=== PATIENT | female | born 1980 | race Hispanic/Latino ===

== ENCOUNTER 2019-12-03 12:08 | Emergency (ER) | payer OTHER, SELFPAY ==
[2019-12-03 12:25] VITALS: BP 145/70; PULSE 110; RESP 13; TEMP 36.8; O2SAT 98
--- NOTE | 2019-12-03 12:29 | ED_ITS ---
HPI - General Adult General Chief complaint: Abdominal Pain Stated complaint: Back pain, colon issue Time Seen by Provider: 12/03/19 12:15 Source: patient Mode of arrival: Ambulatory Limitations: no limitations History of Present Illness HPI narrative: 39-year-old female sent over from her primary doctor's office for evaluation of rectal prolapse. Patient states that she has had chronic pelvic in lower abdomen and back pain. Has had multiple CT scans and colonoscopies for this in the past. There has never been a confirmed diagnosis. She states that for the past 8 months she has had occasional episodes where she has had rectal prolapse. They of all reduced on their own. She currently does not have a rectal prolapse. She went to see her primary doctor today for this. He sent her to the emergency department to be evaluated by General surgery. She states that the last time that she has had a prolapse was several days ago. That is when she took the picture that she has today. She also states she has had problems with having bowel movements. No vomiting. No fevers. No urinary symptoms. She states she has never had to reduce that on its own. Has always spontaneously reduced. She does have lower abdominal pain but this is chronic. Related Data Home Medications Medication Instructions Recorded Confirmed prednisone 20 mg PO DAILY 12/03/19 12/03/19 Allergies Allergy/AdvReac Type Severity Reaction Status Date / Time INGREDIENT: NKDA - NO KNOWN Allergy Unknown Uncoded 12/21/17 13:11 DRUG ALLERGIES Review of Systems Constitutional Constitutional: Denies fever(s) and Denies headache(s) ENT Ears, Nose, Mouth, and Throat: Denies headache(s) Cardiovascular Cardiovascular: Denies chest pain and Denies dyspnea Respiratory Respiratory: Denies dyspnea Gastrointestinal Gastrointestinal: Reports abdominal pain, Denies nausea and Denies vomiting Comments: Constipation and rectal prolapse Musculoskeletal Musculoskeletal: Reports back pain Integumentary/Breasts Skin/Breast: Denies lesions and Denies rash Neurologic Neurologic: Denies behavioral changes and Denies headache(s) Psychiatric Psychiatric: Denies behavioral changes Hematologic/Lymphatic Hematologic/Lymphatic: Denies easy bleeding and Denies easy bruising Patient History Medical History Chronic abdominal pain (Acute) Social History Smoking Status: Current every day smoker Smoking Status: Current every day smoker tobacco type: cigarettes alcohol intake frequency: a few times a month Substance Use Type: does not use Exam Initial Vital Signs Initial Vital Signs: Vital Signs Temperature 98.3 F 12/03/19 12:25 Pulse Rate 110 H 12/03/19 12:25 Respiratory Rate 13 12/03/19 12:25 Blood Pressure 145/70 H 12/03/19 12:25 Pulse Oximetry 98 12/03/19 12:25 Const General: cooperative, well developed and well groomed Limitations: mental status not altered Resp Effort & Inspection: normal respiratory effort Auscultation: clear to auscultation bilaterally Cardio Rate: tachycardic Rhythm: regular rhythm GI Inspection: non-distended Palpation: soft and tender (Left-sided abdomen) Skin Lesions: no lesions Rashes: no rashes Neuro General: alert, awake and oriented x3 Extrem General: normal to inspection and capillary refill normal Psych Appearance: grossly normal and well kempt Course Vital Signs Vital signs: Vital Signs - 8 hr 12/03/19 12:25 Temperature 98.3 F Pulse Rate 110 H Respiratory Rate 13 Blood Pressure 145/70 H Pulse Oximetry 98 Medical Decision Making MDM Narrative Medical decision making narrative: I did not do an exam of her rectum. She states that she was not prolapsed currently. She showed me the picture that she took a couple days ago. This is consistent with a rectal prolapse. I did discuss the case with Dr. Forbes with General surgery who recommended given the patient's age that she be evaluated by a colorectal provider. I then discussed the case with General surgery over at [facility] who has a colorectal provider. I did discuss the case with the general surgeon specialist employee labor relations who stated that given the fact that this symptoms have been going on for the past 8 months and that they are self reducing and that she is not reduced now that no further workup needed in the emergency department and that she could follow up with Dr. Padgett as an outpatient. Patient was provided the information for Dr. Padgett. She was given return precautions and follow-up instructions. I do not feel given her exam today that we need to obtain a CT scan of her abdomen. Patient expressed understanding. Discharge Plan Departure Patient Disposition: Home Clinical Impression: Rectal prolapse Instructions: DI for Rectal Prolapse Activity Restrictions/Additional Instructions: After discussions with the general surgeons here at this hospital they do recommend that you were referred to see Colorectal surgery. I recommend that you contact Dr. Rick Padgett who is a colorectal surgeon at [facility]. His office phone number is [phone]. I recommend that you start on a bowel regiment so that you are having 1 soft bowel movement today. This bowel regimen can be anything from increasing her fluid intake to increasing fiber to stool softeners to laxatives. It is most likely that the prolapse will happen again when you have another bowel movement. Just provide gentle pressure to the area. If it ever does not reduce on its own or you start to have new symptoms please return to the emergency department for further evaluation. Prescriptions: No Action prednisone 20 mg Tablet 20 mg PO DAILY RF: 0 Referrals: Shayne Sam MD [Primary Care Provider] -
[2019-12-03 13:02] VITALS: BP 145/70; PULSE 110; RESP 20; TEMP 36.8; O2SAT 98; BMI 21.9
--- NOTE | 2019-12-03 13:05 | PC.NURSE ---
ER provider speaking with patient regarding plan of care. Patient to follow up on an outpatient basis. V/U. Patient tearful.
== END 2019-12-03 13:00 | disposition home or self-care (01) ==
PROVIDERS: Emergency Provider Emergency Medicine; Family Provider Internal Medicine; PCP Internal Medicine
DX: K62.3 Rectal prolapse (principal)
CPT/HCPCS: 99281

== ENCOUNTER 2022-03-27 09:31 | Emergency (ER) | payer OTHER, SELFPAY ==
[2022-03-27 10:00] VITALS: BP 125/78; PULSE 96; RESP 18; O2SAT 100; BMI 23.0
--- NOTE | 2022-03-27 11:58 | ED_ITS ---
HPI - Headache <CHERI Leary - Last Filed: 03/27/22 14:55> General Chief Complaint: Headache Stated Complaint: head pain in back of head; Time Seen by Provider: 03/27/22 11:54 Mode of arrival: Ambulatory History of Present Illness HPI Narrative: 41-year-old female, daily smoker, presents to the emergency department with occipital headache pain x1 week. Patient had sinus issues for many years finally saw ENT 2 weeks ago. Patient received CT scan sinuses, per patient, it was then placed on antibiotics for 2 weeks and steroids x1 week. Patient reports that the headache pain started immediately after the steroids ended and has progressively gotten worse. Patient now complains of pain of the center occiput with palpation. Palpation of left frontal sinuses causes pain to radiate back to the occiput. Patient is scheduled to see her ENT next Tuesday for repeat CT but she is concerned she may ?stroke out? by that time. Patient and mother report a familial history of stroke. Patient is tearful during evaluation. Related Data Allergies Allergy/AdvReac Type Severity Reaction Status Date / Time No Known Drug Allergies Allergy Verified 03/27/22 10:00 Review of Systems <CHERI Leary - Last Filed: 03/27/22 14:55> Review of Systems Narrative: Narrative: GENERAL: Denies chills, fatigue, fever, sweats. See HPI HEENT: Denies ear pain, sore throat, difficulty swallowing, dizziness. RESPIRATORY: Denies dyspnea, cough, wheezing, sputum. CARDIOVASCULAR: Denies chest pain, palpitations, edema. GASTROINTESTINAL: Denies nausea, vomiting, abdominal pain, diarrhea. : Denies dysuria, frequency, incontinence, hematuria, urinary retention, flank pain. MSK: Denies weakness, joint pain, or bony pain. SKIN: Denies pruritis. NEUROLOGIC: Denies weakness, dizziness, numbness, confusion. PSYCHIATRIC: No concerning psychosocial issues. Patient History <CHERI Leary - Last Filed: 03/27/22 14:55> Medical History (Updated 03/27/22 @ 14:54 by CHERI Leary) Chronic abdominal pain Social History Smoking Status: Current every day smoker Smoking Status: Current every day smoker tobacco type: cigarettes alcohol intake frequency: a few times a month Substance Use Type: marijuana Exam <CHERI Leary - Last Filed: 03/27/22 14:55> Narrative Exam Narrative: Exam Narrative: GENERAL: This is a well-nourished, well-developed patient, in no acute distress HEAD: Atraumatic. Normocephalic. No rashes, lesions or signs of trauma noted to scalp. EYES: Pupils equal round and reactive. Extraocular motions intact. No scleral icterus, injection or drainage. ENT: Nose without bleeding, purulent drainage. Throat without erythema, tonsillar hypertrophy. Positive postnasal drainage. Airway patent. Left frontal sinuses tender. NECK: Trachea midline. No JVD or lymphadenopathy. Nontender. CARDIOVASCULAR: Regular rate and rhythm without murmurs, peripheral pulses intact, cap refill <2 sec. RESPIRATORY: Breath sounds equal and clear bilaterally. No wheezes, rales, or rhonchi. No cough. No increased respiratory effort. No accessory muscle use. GASTROINTESTINAL: Abdomen soft, non-tender, nondistended without guarding or rebound. No suprapubic pain. MSK: Moves all extremities. Normal range of motion, no clubbing or edema. Neurovascularly intact. NEURO: A&O x 3. Neurological examination unremarkable. SKIN: Warm, dry, no rashes or lesions noted. Initial Vital Signs Initial Vital Signs: Vital Signs Pulse Rate 96 H 03/27/22 10:00 Respiratory Rate 18 03/27/22 10:00 Blood Pressure 125/78 03/27/22 10:00 Pulse Oximetry 100 03/27/22 10:00 Oxygen Delivery Method 03/27/22 10:00 Reviewed Neuro Cranial Nerves: CN's II-XI intact bilaterally <Fletcher Tai MD - Last Filed: 03/28/22 07:51> Initial Vital Signs Initial Vital Signs: Vital Signs Pulse Rate 96 H 03/27/22 10:00 Respiratory Rate 18 03/27/22 10:00 Blood Pressure 125/78 03/27/22 10:00 Pulse Oximetry 100 03/27/22 10:00 Oxygen Delivery Method 03/27/22 10:00 Course <CHERI Leary - Last Filed: 03/27/22 14:55> Orders Ordered: Discontinued Medications Sodium Chloride (Normal Saline 0.9%) 1,000 mls @ 1,000 mls/hr IV BOLUS ONE Stop: 03/27/22 13:24 Last Infusion: 03/27/22 15:10 Dose: 0 mls/hr Documented By: Admin: 03/27/22 12:53 Dose: 1,000 mls/hr Documented By: CLAUDETTE Ketorolac Tromethamine (Ketorolac 30 Mg/Ml Vial) 30 mg IV NOW ONE Stop: 03/27/22 12:26 Last Admin: 03/27/22 12:54 Dose: 30 mg Documented By: CLAUDETTE Vital Signs Vital signs: Vital Signs - 8 hr 03/27/22 10:00 Pulse Rate 96 H Respiratory Rate 18 Blood Pressure 125/78 Pulse Oximetry 100 Oxygen Delivery Method Room Air <Fletcher Tai MD - Last Filed: 03/28/22 07:51> Orders Ordered: Discontinued Medications Sodium Chloride (Normal Saline 0.9%) 1,000 mls @ 1,000 mls/hr IV BOLUS ONE Stop: 03/27/22 13:24 Last Infusion: 03/27/22 15:10 Dose: 0 mls/hr Documented By: Admin: 03/27/22 12:53 Dose: 1,000 mls/hr Documented By: CLAUDETTE Ketorolac Tromethamine (Ketorolac 30 Mg/Ml Vial) 30 mg IV NOW ONE Stop: 03/27/22 12:26 Last Admin: 03/27/22 12:54 Dose: 30 mg Documented By: CLAUDETTE Vital Signs Vital signs: Vital Signs - 8 hr 03/27/22 10:00 Pulse Rate 96 H Respiratory Rate 18 Blood Pressure 125/78 Pulse Oximetry 100 Oxygen Delivery Method Room Air MDM - Headache <CHERI Leary - Last Filed: 03/27/22 14:55> Differential Diagnosis Differential diagnosis: Likely migraine and sinusitis Lab Data Result diagrams: 03/27/22 11:30 03/27/22 11:30 Labs: Lab Results 03/27/22 03/27/22 03/27/22 Range/Units 11:30 11:30 11:30 WBC 7.6 (4.5-11.0) X10^3/uL RBC 4.04 (4.0-5.2) X10^6/uL Hgb 13.3 (12.0-16.0) g/dL Hct 39.1 (36-46) % MCV 96.6 (80-100) fL MCH 33.0 (26-34) PG MCHC 34.2 (30-36) % RDW 13.8 (11.6-14.8) % Plt Count 185 (150-400) X10^3/uL Neut % (Auto) 66.3 (50-75) % Lymph % (Auto) 24.7 L (25-40) % Power % (Auto) 6.2 (3-14) % Eos % (Auto) 2.4 (2-4) % Baso % (Auto) 0.4 (0-2) % Neut # (Auto) 5100 (9590-5623) /uL Lymph # (Auto) 1900 (0685-5673) /uL Power # (Auto) 500 (0-900) /uL Eos # (Auto) 200 (0-450) /uL Baso # (Auto) 0 (0-100) /uL Sodium 138 (137-145) mmol/L Potassium 3.8 (3.4-5.1) mmol/L Chloride 104 (98-107) mmol/L Carbon Dioxide 29 (22-32) mmol/L BUN 7 (7-17) mg/dL Creatinine 0.68 (0.52-1.04) mg/dL Estimated GFR > 60 (>60) mL/min BUN/Creatinine Ratio 10.3 (6-22) Glucose 98 (70-100) mg/dL Calcium 8.9 (8.4-10.2) mg/dL Total Bilirubin 0.7 (0.2-1.3) mg/dL AST 44 H (14-36) IU/L ALT 21 (<35) IU/L Alkaline Phosphatase 75 (38-126) U/L Total Protein 7.1 (6.3-8.2) g/dL Albumin 4.2 (3.5-5.0) g/dL Globulin 2.9 (1.7-4.1) g/dL Albumin/Globulin Ratio 1.4 (1.0-2.8) Serum , Qual Negative (Negative) Imaging Data CTA - brain/neck: Radiologist's Impression: [address] [address] [address] Scan Report Signed Patient: Adina Loredo MR#: [id number] : 1980 Acct:[id number] Age/Sex: 41 / F Date of Service: 03/27/22 Loc: ED Accession Number: [id number] ?? Procedure: CT angio head and neck Ordering Provider: Jensen Vázquez PROCEDURE:? CT ANGIO HEAD AND NECK ? INDICATIONS:? headache pain ? TECHNIQUE:? Pre-contrast 4.5 mm thick sections acquired from the foramen magnum to the vertex.? After the administration of intravenous contrast, 1 mm thick sections acquired from the aortic arch through the [place] of Javier.? Post-contrast 4.5 mm thick sections then re- acquired from the foramen magnum to the vertex.? For radiation dose reduction, the following was used:? automated exposure control, adjustment of mA and/or kV according to patient size.? ? ? COMPARISON:? Outside Film, CT, CT SINUS WITHOUT CONTRAST, 03/04/2022, 17:19.? [facility], CT, CT SINUS WITHOUT CONTRAST, 08/15/2020, 10:57. ? FINDINGS: ? Noncontrast CT Brain: ? Cerebrum, cerebellum and brainstem:? There is appropriate cerebral and cerebellar volume. ?No evidence of intracranial hemorrhage, mass effect or extra-axial fluid collections.? No white matter disease. Victoria-white distinction is well preserved throughout the exam. ? Ventricles:? Appropriate size and position.? No evidence of hydrocephalus. ? Skull base:? The bony sella, pituitary gland and infundibulum are unremarkable.? Posterior fossa and cerebellum are unremarkable. Visualized portions of the external auditory canals and tympanic cavity are within normal limits. ? Calvarium and Scalp:? No scalp soft tissue swelling.? The underlying calvarium is intact without skull fracture or lytic lesion. ? Paranasal Sinuses:? Left maxillary sinus mucosal thickening with internal mucosal debris results in near complete opacification Mastoids:? Unremarkable as visualized.? No mastoid effusion. ? Cerebral CT Angiogram: ? Internal carotid arteries:? No acute findings.? Intracranial ICA are patent with no significant stenosis.? No occlusion.? No aneurysm. ? Anterior cerebral arteries:? Unremarkable.? No significant stenosis.? No o cclusion.? No aneurysm. ? Middle cerebral arteries:? Unremarkable.? No significant stenosis.? No occ lusion.? No aneurysm. ? Posterior cerebral arteries:? 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 The P2 segment is supplied by a widely patent posterior communicating artery. Remainder of the distal vasculature unremarkable. ? Basilar artery:? Unremarkable.? No significant stenosis.? No occlusion.? No aneurysm. ? Vertebral arteries:? Unremarkable.? No significant stenosis.? No dissection or occlusion. ? Dural venous sinuses:? Unremarkable given phase of enhancement. Other: Arterial phase brain parenchyma unremarkable. ? Neck CT Angiogram: ? Internal carotid arteries:? Unremarkable.? No significant stenosis.? No dissection or occlusion. ? Common carotid arteries:? Unremarkable.? No significant stenosis.? No dissection or occlusion. ? External carotid arteries:? Unremarkable.? No occlusion. ? Vertebral arteries:? Unremarkable.? No significant stenosis.? No dissection or occlusion. ? Aortic arch and mediastinum: Unremarkable. Other:? Surgical clips noted both thoracic inlets.? Both lung apices are clear. ? IMPRESSION: ? 1. Unremarkable CT angiogram of the head and neck without evidence of large vessel occlusion, aneurysm or vascular malformation. ? 2. Left maxillary mucosal sinus disease with obstruction of the ostiomeatal unit and slight expansion of the sinus. ? Note: Any reported proximal ICA stenosis was calculated using NASCET guidelines.? Approved by: Tony Aponte M.D. on 03/27/2022 at 13:35? [facility] Narrative Medical decision making narrative: 41-year-old female that presents to emergency department with headache and sinus pain. Labs were all within normal limits. CT angiogram reveals Left maxillary mucosal sinus disease with obstruction of the ostiomeatal unit and slight expansion of the sinus.. Patient treated with 1 L of normal saline, and ketorolac. Patient has a follow-up appointment with her ENT Tuesday, so will not prescribe any antibiotics. Recommend patient use Tylenol for her headache pain. Discussed return precautions and plan of care with patient, who was agreeable with course of action. <Fletcher Tai MD - Last Filed: 03/28/22 07:51> Lab Data Labs: Lab Results 03/27/22 03/27/22 03/27/22 Range/Units 11:30 11:30 11:30 WBC 7.6 (4.5-11.0) X10^3/uL RBC 4.04 (4.0-5.2) X10^6/uL Hgb 13.3 (12.0-16.0) g/dL Hct 39.1 (36-46) % MCV 96.6 (80-100) fL MCH 33.0 (26-34) PG MCHC 34.2 (30-36) % RDW 13.8 (11.6-14.8) % Plt Count 185 (150-400) X10^3/uL Neut % (Auto) 66.3 (50-75) % Lymph % (Auto) 24.7 L (25-40) % Power % (Auto) 6.2 (3-14) % Eos % (Auto) 2.4 (2-4) % Baso % (Auto) 0.4 (0-2) % Neut # (Auto) 5100 (6524-4509) /uL Lymph # (Auto) 1900 (4146-1213) /uL Power # (Auto) 500 (0-900) /uL Eos # (Auto) 200 (0-450) /uL Baso # (Auto) 0 (0-100) /uL Sodium 138 (137-145) mmol/L Potassium 3.8 (3.4-5.1) mmol/L Chloride 104 (98-107) mmol/L Carbon Dioxide 29 (22-32) mmol/L BUN 7 (7-17) mg/dL Creatinine 0.68 (0.52-1.04) mg/dL Estimated GFR > 60 (>60) mL/min BUN/Creatinine Ratio 10.3 (6-22) Glucose 98 (70-100) mg/dL Calcium 8.9 (8.4-10.2) mg/dL Total Bilirubin 0.7 (0.2-1.3) mg/dL AST 44 H (14-36) IU/L ALT 21 (<35) IU/L Alkaline Phosphatase 75 (38-126) U/L Total Protein 7.1 (6.3-8.2) g/dL Albumin 4.2 (3.5-5.0) g/dL Globulin 2.9 (1.7-4.1) g/dL Albumin/Globulin Ratio 1.4 (1.0-2.8) Serum , Qual Negative (Negative) Discharge Plan Departure Patient Disposition: Home Clinical Impression: Tension headache, Sinusitis Instructions: DI for Sinus Headache Activity Restrictions/Additional Instructions: *You have been diagnosed with a sinus headache. Your CT angiogram showed no concerning symptoms other than left-sided sinus issues. Please follow-up with your ENT doctor on Tuesday, as previously prescribed. We did give you an injection of ketorolac, so you should not take anymore ibuprofen or Advil until this evening. You may use Tylenol or Excedrin for your headache pain until that time. Please make sure you hydrate well. If at any point you have worsening symptoms, intolerable pain, loss of consciousness, etc., please return to the emergency department. *What to do: *Please continue to take your regular medications as directed. [ ] New medication prescriptions sent to your pharmacy: [ ] [ ] New medication written as a paper prescription [x ] No new medications given *Please follow up with your primary care provider in 2-3 days, call for an appointment. Let them know you were seen in the Emergency Department and that we ask that you be seen in follow up. We will electronically transmit a record of today's note if your PCP is in our system *If you do not have a primary care provider please contact the [facility] Resource line at [phone]. They will ask some questions about your medical history and help get you set up with a doctor in the community. ? Return to ER if you should have any new, worsening or concerning symptoms, such as worsening pain, severe headache, confusion, chest pain, difficulty breathing, fever greater than 101 F, shaking chills, persistent vomiting to the point that you cannot drink fluids, or other new or worsening symptoms. Referrals: Serina Zhang ARNP [Primary Care Provider] - Visit Report Forms: Patient Portal/API <Fletcher Tai MD - Last Filed: 03/28/22 07:51> [facility] ED [facility]: I was immediately available in the department for consultation. ?This documentation has been reviewed and I agree with assessment and plan. Supervised by Fletcher Tai MD
--- NOTE | 2022-03-27 12:20 | DI.CT.S_ITS ---
PROCEDURE: CT ANGIO HEAD AND NECK INDICATIONS: headache pain TECHNIQUE: Pre-contrast 4.5 mm thick sections acquired from the foramen magnum to the vertex. After the administration of intravenous contrast, 1 mm thick sections acquired from the aortic arch through the [place] of Javier. Post-contrast 4.5 mm thick sections then re-acquired from the foramen magnum to the vertex. For radiation dose reduction, the following was used: automated exposure control, adjustment of mA and/or kV according to patient size. COMPARISON: Outside Film, CT, CT SINUS WITHOUT CONTRAST, 03/04/2022, 17:19. [facility], CT, CT SINUS WITHOUT CONTRAST, 08/15/2020, 10:57. FINDINGS: Noncontrast CT Brain: Cerebrum, cerebellum and brainstem: There is appropriate cerebral and cerebellar volume. No evidence of intracranial hemorrhage, mass effect or extra-axial fluid collections. No white matter disease. Victoria-white distinction is well preserved throughout the exam. Ventricles: Appropriate size and position. No evidence of hydrocephalus. Skull base: The bony sella, pituitary gland and infundibulum are unremarkable. Posterior fossa and cerebellum are unremarkable. Visualized portions of the external auditory canals and tympanic cavity are within normal limits. Calvarium and Scalp: No scalp soft tissue swelling. The underlying calvarium is intact without skull fracture or lytic lesion. Paranasal Sinuses: Left maxillary sinus mucosal thickening with internal mucosal debris results in near complete opacification Mastoids: Unremarkable as visualized. No mastoid effusion. Cerebral CT Angiogram: Internal carotid arteries: No acute findings. Intracranial ICA are patent with no significant stenosis. No occlusion. No aneurysm. Anterior cerebral arteries: Unremarkable. No significant stenosis. No occlusion. No aneurysm. Middle cerebral arteries: Unremarkable. No significant stenosis. No occlusion. No aneurysm. 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 The P2 segment is supplied by a widely patent posterior communicating artery. Remainder of the distal vasculature unremarkable. Basilar artery: Unremarkable. No significant stenosis. No occlusion. No aneurysm. Vertebral arteries: Unremarkable. No significant stenosis. No dissection or occlusion. Dural venous sinuses: Unremarkable given phase of enhancement. Other: Arterial phase brain parenchyma unremarkable. Neck CT Angiogram: Internal carotid arteries: Unremarkable. No significant stenosis. No dissection or occlusion. Common carotid arteries: Unremarkable. No significant stenosis. No dissection or occlusion. External carotid arteries: Unremarkable. No occlusion. Vertebral arteries: Unremarkable. No significant stenosis. No dissection or occlusion. Aortic arch and mediastinum: Unremarkable. Other: Surgical clips noted both thoracic inlets. Both lung apices are clear. IMPRESSION: 1. Unremarkable CT angiogram of the head and neck without evidence of large vessel occlusion, aneurysm or vascular malformation. 2. Left maxillary mucosal sinus disease with obstruction of the ostiomeatal unit and slight expansion of the sinus. Note: Any reported proximal ICA stenosis was calculated using NASCET guidelines. Approved by: Tony Aponte M.D. on 03/27/2022 at 13:35
[2022-03-27] MEDS: SODIUM CHLORIDE 0.9% 1,000 ML 1000 ML IV (12:53)
[2022-03-27] MEDS: KETOROLAC 30 MG/ML VIAL IV (12:54)
[2022-03-27 12:58] LABS: Add Manual Diff / Slide Review NO; Basophils Absolute Auto 0 /uL (0-100); Basophils Percent Auto 0.4 % (0-2); Eosinophils Absolute Auto 200 /uL (0-450); Eosinophils Percent Auto 2.4 % (2-4); Hematocrit 39.1 % (36-46); Hemoglobin 13.3 g/dL (12.0-16.0); Lymphocytes Absolute Auto 1900 /uL (1100-4500); Lymphocytes Percent Auto 24.7 % (25-40); Mean Corpuscular HGB Conc 34.2 % (30-36); Mean Corpuscular Volume 96.6 fL (80-100); Monocytes Absolute Auto 500 /uL (0-900); Monocytes Percent Auto 6.2 % (3-14); Neutrophils Absolute Auto 5100 /uL (1500-7000); Neutrophils Percent Auto 66.3 % (50-75); Platelet Count 185 X10^3/uL (150-400); Red Blood Cell Count 4.04 X10^6/uL (4.0-5.2); Red Cell Distribution Width 13.8 % (11.6-14.8); White Blood Cell Count 7.6 X10^3/uL (4.5-11.0)
[2022-03-27 13:07] LABS: Pregnancy Test Serum,Qual Negative (Negative)
[2022-03-27 14:08] LABS: Alanine Aminotransferase 21 IU/L (<35); Albumin 4.2 g/dL (3.5-5.0); Albumin Globulin Ratio 1.4 (1.0-2.8); Alkaline Phosphatase 75 U/L (38-126); Aspartate Aminotransferase 44 IU/L (14-36); BUN Creatinine Ratio 10.3 (6-22); Bilirubin Total 0.7 mg/dL (0.2-1.3); Blood Urea Nitrogen 7 mg/dL (7-17); Calcium 8.9 mg/dL (8.4-10.2); Carbon Dioxide 29 mmol/L (22-32); Chloride 104 mmol/L (98-107); Estimated Glomerular Filt Rate > 60 mL/min (>60); Globulin 2.9 g/dL (1.7-4.1); Glucose 98 mg/dL (70-100); HEMOLYSIS < 15 (0-50); Potassium 3.8 mmol/L (3.4-5.1); Sodium 138 mmol/L (137-145); Total Protein 7.1 g/dL (6.3-8.2)
[2022-03-27 15:10] VITALS: BP 93/52; PULSE 98; RESP 16; O2SAT 97
== END 2022-03-27 15:13 | disposition home or self-care (01) ==
PROVIDERS: Emergency Provider Registered Nurse; Family Provider Internal Medicine; PCP Nurse Practitioner Family
DX: G44.209 Tension-type headache, unspecified, not intractable (principal); J32.9 Chronic sinusitis, unspecified
CPT/HCPCS: 70496; 70498; 80053; 84703; 85025; 96361; 96374; 99284; J1885; Q9967